=== PATIENT | male | born 1955 | race African-American/Black ===

== ENCOUNTER 2021-11-12 00:15 | Inpatient (IN) | payer MEDICARE ==
[~2021-11-12] VITALS: Ht 172.7 cm; Wt 75.7 kg
[2021-11-12] VITALS (9 sets, daily range): BP systolic 97–132; BP diastolic 60–77
[2021-11-12 00:44] LABS: BASOPHILS # (AUTO) 0.1 (0.0-0.1); BASOPHILS % 0.6 % (0.0-1.0); EOSINOPHILS # (AUTO) 1.8 (0.0-0.4); EOSINOPHILS % 9.8 % (0.0-6.0); HEMATOCRIT 30.6 % (38.2-49.6); HEMOGLOBIN 9.3 g/dL (14.0-18.0); LYMPHOCYTES # (AUTO) 2.6 (1.0-3.2); LYMPHOCYTES % 14.2 % (18.0-39.1); MEAN CORPUSCULAR HEMOGLOBIN 25.7 pg (28-32); MEAN CORPUSCULAR HGB CONC 30.4 g/dL (31-35); MEAN CORPUSCULAR VOLUME 84.5 fL (81-99); MONOCYTES % 5.3 % (4.4-11.3); NEUTROPHILS # (AUTO) 12.8 (2.1-6.9); NEUTROPHILS % 69.4 % (38.7-80.0); PLATELET COUNT 511 x10e3/uL (140-360); RED BLOOD COUNT 3.62 x10e6/uL (4.3-5.7); RED CELL DISTRIBUTION WIDTH 19.1 % (11.7-14.4)
[2021-11-12 01:02] LABS: ALANINE AMINOTRANSFERASE 8 IU/L (0-55); ALBUMIN 2.6 g/dL (3.5-5.0); ALBUMIN/GLOBULIN RATIO 0.5 (0.8-2.0); ALKALINE PHOSPHATASE 58 IU/L (40-150); ANION GAP 15.7 mmol/L (8-16); BLOOD UREA NITROGEN 15 mg/dL (7-26); BUN/CREATININE RATIO 19 (6-25); CALCIUM 8.5 mg/dL (8.4-10.2); CARBON DIOXIDE 26 mmol/L (22-29); CHLORIDE 99 mmol/L (98-107); CREATINE KINASE 24 IU/L (30-200); CREATININE, SERUM 0.81 mg/dL (0.72-1.25); EST GLOMERULAR FILTRATION RATE 116 ML/MIN (60-); GLUCOSE 92 mg/dL (74-118); POTASSIUM 3.7 mmol/L (3.5-5.1); SODIUM 137 mmol/L (136-145)
[2021-11-12] MEDS ORDERED: PIPERACILLIN/TAZOBACTAM 3.375 GM VIAL ONE (01:05)
[2021-11-12 01:15] LABS: B-TYPE NATRIURETIC PEPTIDE2 352.8 pg/mL (0-100)
[2021-11-12 01:27] LABS: CLARITY,URINE CLEAR (CLEAR); COLOR,URINE YELLOW (YELLOW); KETONES,URINE NEGATIVE (NEGATIVE); LEUKOCYTE ESTERASE ,URINE NEGATIVE (NEGATIVE); NITRITE,URINE NEGATIVE (NEGATIVE); PROTEIN,URINE DIPSTICK NEGATIVE (NEGATIVE); URINE UROBILINOGEN 0.2 mg/dL (0.2 - 1)
[2021-11-12 01:34] LABS: BACTERIA,URINE RARE /HPF; EPITHELIAL CELLS,URINE FEW /LPF; RBC,URINE 0-5 /HPF (0-5); WBC,URINE (MAN) 0-5 /HPF (0-5)
[2021-11-12] MEDS ORDERED: FUROSEMIDE INJ 10 MG/ML 4 ML VIAL IV SCH (03:45)
[2021-11-12] MEDS ORDERED: ONDANSETRON HCL INJ 2MG/ML 2ML 2 MG/ML VIAL IV PRN ×2 (04:15→12:30)
[2021-11-12] MEDS ORDERED: TYLENOL325 MG PO (06:16)
[2021-11-12] MEDS ORDERED: ALBUTEROL0.63 MG/3 NEB (06:19)
[2021-11-12] MEDS ORDERED: ALLOPURINOL100 MG PO (06:21)
[2021-11-12] MEDS ORDERED: AMIODARONE HCL100 MG PO (06:21)
[2021-11-12] MEDS ORDERED: ASPIRIN CHEW81 MG PO (06:22)
[2021-11-12] MEDS ORDERED: ATIVAN1 MG PO (06:23)
[2021-11-12] MEDS ORDERED: BENZONATATE100 MG PO (06:24)
[2021-11-12] MEDS ORDERED: FINASTERIDE5 MG PO (06:26)
[2021-11-12] MEDS ORDERED: FOLIC ACID0.4 MG PO (06:27)
[2021-11-12] MEDS ORDERED: FUROSEMIDE40 MG PO (06:28)
[2021-11-12] MEDS ORDERED: NEURONTIN100 MG PO (06:29)
[2021-11-12] MEDS ORDERED: MUCINEX600 MG PO (06:30)
[2021-11-12] MEDS ORDERED: ARAVA20 MG PO (06:32)
[2021-11-12] MEDS ORDERED: METOPROLOL TART25 MG PO (06:32)
[2021-11-12] MEDS ORDERED: PROTONIX20 MG PO (06:51)
[2021-11-12] MEDS ORDERED: PREDNISONE20 MG PO (06:52)
[2021-11-12] MEDS ORDERED: FLOMAX0.4 MG PO (06:53)
[2021-11-12] MEDS ORDERED: ULTRAM50 MG PO (06:54)
[2021-11-12] MEDS ORDERED: LIPITOR20 MG PO (08:03)
[2021-11-12] MEDS: ACETAMINOPHEN 325 MG TAB PO PRN (08:42)
[2021-11-12 08:56] LABS: CREATINE KINASE 21 IU/L (30-200)
[2021-11-12 09:31] LABS: ABG HCO3 33 mmol/L (22-26); ABG PCO2 36 mmHg (35-45); ABG PH 7.57 (7.35-7.45); ABG PO2 65 mmHg (80-105); ABG TCO2 34
[2021-11-12] MEDS: ALLOPURINOL 100 MG TAB PO SCH (11:00)
[2021-11-12] MEDS ORDERED: ACETAMINOPHEN 325 MG TAB PO PRN (12:00)
[2021-11-12] MEDS ORDERED: HYDROMORPHONE 1MG/1ML INJ IV ONE (12:35)
[2021-11-12] MEDS ORDERED: SODIUM CHLORIDE 0.9% 250ML 250 ML ONE (12:42)
[2021-11-12] MEDS: AMIODARONE HCL 200 MG TAB PO SCH (12:47)
[2021-11-12] MEDS ORDERED: IOPAMIDOL 370 MG/ML 100 ML INFUS..BTL INJ ONE (13:33)
[2021-11-12] MEDS: METHYLPREDNISOLONE SOD SUCC 40 MG/ML VIAL 1ML IV SCH (14:42)
[2021-11-12 17:11] LABS: CREATINE KINASE 19 IU/L (30-200)
[2021-11-12] MEDS: METOPROLOL TARTRATE 25 MG TAB PO SCH ×2 (17:14→20:37)
[2021-11-12] MEDS: BENZONATATE 100 MG CAP PO SCH ×2 (17:14→20:36)
[2021-11-12] MEDS: GUAIFENESIN 600MG/DEXTROMETHORPHAN 30MG TABSR PO SCH (17:14)
[2021-11-12] MEDS: ATORVASTATIN 40 MG TAB PO SCH (20:36)
[2021-11-12] MEDS: HYDROCODONE/APAP 5MG-325MG TAB PO PRN (20:40)
[2021-11-12] MEDS ORDERED: ZOLPIDEM TARTRATE 5 MG TAB PO PRN (21:00)
[2021-11-13] VITALS (7 sets, daily range): BP systolic 99–121; BP diastolic 56–89
[2021-11-13] MEDS: METOPROLOL TARTRATE 25 MG TAB PO SCH ×3 (05:17→20:19)
[2021-11-13 06:12] LABS: BASOPHILS # (AUTO) 0.1 (0.0-0.1); BASOPHILS % 0.4 % (0.0-1.0); EOSINOPHILS % 0.1 % (0.0-6.0); HEMATOCRIT 30.9 % (38.2-49.6); HEMOGLOBIN 9.3 g/dL (14.0-18.0); LYMPHOCYTES # (AUTO) 1.8 (1.0-3.2); LYMPHOCYTES % 12.6 % (18.0-39.1); MEAN CORPUSCULAR HEMOGLOBIN 25.2 pg (28-32); MEAN CORPUSCULAR HGB CONC 30.1 g/dL (31-35); MEAN CORPUSCULAR VOLUME 83.7 fL (81-99); MONOCYTES # (AUTO) 0.4 (0.2-0.8); MONOCYTES % 2.9 % (4.4-11.3); NEUTROPHILS # (AUTO) 11.6 (2.1-6.9); NEUTROPHILS % 82.9 % (38.7-80.0); PLATELET COUNT 543 x10e3/uL (140-360); RED BLOOD COUNT 3.69 x10e6/uL (4.3-5.7); RED CELL DISTRIBUTION WIDTH 18.9 % (11.7-14.4)
[2021-11-13 06:49] LABS: ALBUMIN 2.6 g/dL (3.5-5.0); ALBUMIN/GLOBULIN RATIO 0.5 (0.8-2.0); ANION GAP 12.9 mmol/L (8-16); CALCIUM 8.7 mg/dL (8.4-10.2); CREATININE, SERUM 0.74 mg/dL (0.72-1.25); POTASSIUM 3.9 mmol/L (3.5-5.1)
[2021-11-13] MEDS: TAMSULOSIN HCL 0.4 MG CAP PO SCH ×2 (08:56→09:00)
[2021-11-13] MEDS: METHYLPREDNISOLONE SOD SUCC 40 MG/ML VIAL 1ML IV SCH (08:56)
[2021-11-13] MEDS: AMIODARONE HCL 200 MG TAB PO SCH (08:56)
[2021-11-13] MEDS: FINASTERIDE 5 MG TAB PO SCH ×2 (08:56→09:00)
[2021-11-13] MEDS: GUAIFENESIN 600MG/DEXTROMETHORPHAN 30MG TABSR PO SCH ×2 (08:56→16:43)
[2021-11-13] MEDS: ALLOPURINOL 100 MG TAB PO SCH (08:57)
[2021-11-13] MEDS: PANTOPRAZOLE SOD 40 MG TABEC PO SCH (08:57)
[2021-11-13] MEDS: BENZONATATE 100 MG CAP PO SCH ×3 (08:57→20:19)
[2021-11-13] MEDS: HYDROCODONE/APAP 5MG-325MG TAB PO PRN ×2 (12:55→17:16)
[2021-11-13] MEDS: CLOPIDOGREL BISULFATE 75 MG TAB PO SCH (14:08)
[2021-11-13] MEDS: FLUTICASONE PROPIONATE NASAL SPRAY NS SCH (16:23)
[2021-11-13] MEDS: ATORVASTATIN 40 MG TAB PO SCH (20:19)
[2021-11-14] VITALS (7 sets, daily range): BP systolic 94–129; BP diastolic 60–85
[2021-11-14] MEDS: METOPROLOL TARTRATE 25 MG TAB PO SCH ×3 (05:48→22:24)
[2021-11-14] MEDS: HYDROCODONE/APAP 5MG-325MG TAB PO PRN (07:30)
[2021-11-14 08:45] LABS: BASOPHILS # (AUTO) 0.1 (0.0-0.1); BASOPHILS % 0.3 % (0.0-1.0); EOSINOPHILS # (AUTO) 0.1 (0.0-0.4); EOSINOPHILS % 0.5 % (0.0-6.0); HEMATOCRIT 29.2 % (38.2-49.6); HEMOGLOBIN 8.7 g/dL (14.0-18.0); LYMPHOCYTES # (AUTO) 2.9 (1.0-3.2); LYMPHOCYTES % 17.5 % (18.0-39.1); MEAN CORPUSCULAR HEMOGLOBIN 25.4 pg (28-32); MEAN CORPUSCULAR HGB CONC 29.8 g/dL (31-35); MEAN CORPUSCULAR VOLUME 85.1 fL (81-99); MONOCYTES # (AUTO) 1.2 (0.2-0.8); MONOCYTES % 7.3 % (4.4-11.3); NEUTROPHILS # (AUTO) 12.1 (2.1-6.9); NEUTROPHILS % 73.8 % (38.7-80.0); PLATELET COUNT 532 x10e3/uL (140-360); RED BLOOD COUNT 3.43 x10e6/uL (4.3-5.7); RED CELL DISTRIBUTION WIDTH 19.1 % (11.7-14.4)
[2021-11-14] MEDS: AMIODARONE HCL 200 MG TAB PO SCH (09:08)
[2021-11-14] MEDS: CLOPIDOGREL BISULFATE 75 MG TAB PO SCH (09:08)
[2021-11-14] MEDS: GUAIFENESIN 600MG/DEXTROMETHORPHAN 30MG TABSR PO SCH ×2 (09:08→17:25)
[2021-11-14] MEDS: TAMSULOSIN HCL 0.4 MG CAP PO SCH (09:08)
[2021-11-14] MEDS: METHYLPREDNISOLONE SOD SUCC 40 MG/ML VIAL 1ML IV SCH (09:08)
[2021-11-14] MEDS: BENZONATATE 100 MG CAP PO SCH ×3 (09:08→22:23)
[2021-11-14] MEDS: PANTOPRAZOLE SOD 40 MG TABEC PO SCH (09:08)
[2021-11-14] MEDS: ALLOPURINOL 100 MG TAB PO SCH (09:08)
[2021-11-14] MEDS: FINASTERIDE 5 MG TAB PO SCH (09:08)
[2021-11-14] MEDS ORDERED: HYDROMORPHONE 1MG/1ML INJ IV ONE ×2 (09:30→18:45)
[2021-11-14] MEDS: FLUTICASONE PROPIONATE NASAL SPRAY NS SCH ×2 (09:35→17:25)
[2021-11-14] MEDS ORDERED: ONDANSETRON HCL 4 MG ORAL DISINTEGRATING TAB PO PRN (13:00)
[2021-11-14] MEDS: ATORVASTATIN 40 MG TAB PO SCH (22:23)
[2021-11-15] VITALS (9 sets, daily range): BP systolic 98–129; BP diastolic 62–85
[2021-11-15] MEDS: METOPROLOL TARTRATE 25 MG TAB PO SCH ×3 (06:00→20:47)
[2021-11-15] MEDS: HYDROCODONE/APAP 5MG-325MG TAB PO PRN ×2 (06:50→17:20)
[2021-11-15] MEDS: ALLOPURINOL 100 MG TAB PO SCH (08:59)
[2021-11-15] MEDS: PANTOPRAZOLE SOD 40 MG TABEC PO SCH (08:59)
[2021-11-15] MEDS: FINASTERIDE 5 MG TAB PO SCH (08:59)
[2021-11-15] MEDS: AMIODARONE HCL 200 MG TAB PO SCH (08:59)
[2021-11-15] MEDS: CLOPIDOGREL BISULFATE 75 MG TAB PO SCH (08:59)
[2021-11-15] MEDS: GUAIFENESIN 600MG/DEXTROMETHORPHAN 30MG TABSR PO SCH (08:59)
[2021-11-15] MEDS: METHYLPREDNISOLONE SOD SUCC 40 MG/ML VIAL 1ML IV SCH (08:59)
[2021-11-15] MEDS: TAMSULOSIN HCL 0.4 MG CAP PO SCH (08:59)
[2021-11-15] MEDS: BENZONATATE 100 MG CAP PO SCH ×3 (08:59→20:46)
[2021-11-15] MEDS: FLUTICASONE PROPIONATE NASAL SPRAY NS SCH ×2 (09:37→17:19)
[2021-11-15] MEDS: GUAIFENESIN/CODEINE 5 ML LIQD PO PRN ×2 (12:00→20:46)
[2021-11-15 15:28] LABS: BASOPHILS % 0.2 % (0.0-1.0); EOSINOPHILS % 0.1 % (0.0-6.0); HEMATOCRIT 30.3 % (38.2-49.6); HEMOGLOBIN 8.9 g/dL (14.0-18.0); LYMPHOCYTES # (AUTO) 0.8 (1.0-3.2); LYMPHOCYTES % 6.2 % (18.0-39.1); MEAN CORPUSCULAR HEMOGLOBIN 25.1 pg (28-32); MEAN CORPUSCULAR HGB CONC 29.4 g/dL (31-35); MEAN CORPUSCULAR VOLUME 85.6 fL (81-99); MONOCYTES # (AUTO) 0.6 (0.2-0.8); MONOCYTES % 4.3 % (4.4-11.3); NEUTROPHILS # (AUTO) 11.5 (2.1-6.9); NEUTROPHILS % 88.7 % (38.7-80.0); PLATELET COUNT 501 x10e3/uL (140-360); RED BLOOD COUNT 3.54 x10e6/uL (4.3-5.7); RED CELL DISTRIBUTION WIDTH 18.9 % (11.7-14.4)
[2021-11-15 15:42] LABS: ANION GAP 13.9 mmol/L (8-16); CALCIUM 8.3 mg/dL (8.4-10.2); CREATININE, SERUM 0.69 mg/dL (0.72-1.25); POTASSIUM 3.9 mmol/L (3.5-5.1)
[2021-11-15] MEDS: ATORVASTATIN 40 MG TAB PO SCH (20:46)
[2021-11-16] VITALS (10 sets, daily range): BP systolic 117–137; BP diastolic 64–88
[2021-11-16] MEDS: GUAIFENESIN/CODEINE 5 ML LIQD PO PRN ×3 (04:57→21:21)
[2021-11-16] MEDS: HYDROCODONE/APAP 5MG-325MG TAB PO PRN ×3 (04:57→21:21)
[2021-11-16] MEDS: METOPROLOL TARTRATE 25 MG TAB PO SCH ×3 (06:11→21:21)
[2021-11-16] MEDS: METHYLPREDNISOLONE SOD SUCC 40 MG/ML VIAL 1ML IV SCH (09:13)
[2021-11-16] MEDS: CLOPIDOGREL BISULFATE 75 MG TAB PO SCH (09:17)
[2021-11-16] MEDS: AMIODARONE HCL 200 MG TAB PO SCH (09:17)
[2021-11-16] MEDS: TAMSULOSIN HCL 0.4 MG CAP PO SCH (09:17)
[2021-11-16] MEDS: BENZONATATE 100 MG CAP PO SCH ×3 (09:18→21:21)
[2021-11-16] MEDS: ALLOPURINOL 100 MG TAB PO SCH (09:18)
[2021-11-16] MEDS: FINASTERIDE 5 MG TAB PO SCH (09:18)
[2021-11-16] MEDS: PANTOPRAZOLE SOD 40 MG TABEC PO SCH (09:18)
[2021-11-16] MEDS: FLUTICASONE PROPIONATE NASAL SPRAY NS SCH ×2 (09:19→16:43)
[2021-11-16] MEDS: ATORVASTATIN 40 MG TAB PO SCH (21:21)
[2021-11-17] VITALS (8 sets, daily range): BP systolic 103–161; BP diastolic 61–86
[2021-11-17] MEDS: METOPROLOL TARTRATE 25 MG TAB PO SCH ×3 (06:49→21:57)
[2021-11-17] MEDS: AMIODARONE HCL 200 MG TAB PO SCH (09:17)
[2021-11-17] MEDS: TAMSULOSIN HCL 0.4 MG CAP PO SCH (09:17)
[2021-11-17] MEDS: CLOPIDOGREL BISULFATE 75 MG TAB PO SCH (09:18)
[2021-11-17] MEDS: PANTOPRAZOLE SOD 40 MG TABEC PO SCH (09:18)
[2021-11-17] MEDS: FINASTERIDE 5 MG TAB PO SCH (09:18)
[2021-11-17] MEDS: ALLOPURINOL 100 MG TAB PO SCH (09:19)
[2021-11-17] MEDS: BENZONATATE 100 MG CAP PO SCH ×3 (09:19→20:02)
[2021-11-17] MEDS: FLUTICASONE PROPIONATE NASAL SPRAY NS SCH ×2 (09:24→16:38)
[2021-11-17] MEDS: METHYLPREDNISOLONE SOD SUCC 40 MG/ML VIAL 1ML IV SCH (09:24)
[2021-11-17] MEDS: GUAIFENESIN/CODEINE 5 ML LIQD PO PRN ×2 (09:26→17:55)
[2021-11-17] MEDS: HYDROCODONE/APAP 5MG-325MG TAB PO PRN (09:26)
[2021-11-17] MEDS ORDERED: SODIUM CHLORIDE 0.9% 250ML 250 ML ONE (12:09)
[2021-11-17] MEDS: ATORVASTATIN 40 MG TAB PO SCH (20:02)
[2021-11-17] MEDS: ALBUTEROL SULF 0.083% NEB SOLN 3 ML NEB NEB PRN (21:20)
[2021-11-18] VITALS (7 sets, daily range): BP systolic 99–150; BP diastolic 62–79
[2021-11-18] MEDS: ACETAMINOPHEN 325 MG TAB PO PRN (00:14)
[2021-11-18] MEDS: METOPROLOL TARTRATE 25 MG TAB PO SCH (06:13)
[2021-11-18 07:32] LABS: BASOPHILS # (AUTO) 0.1 (0.0-0.1); BASOPHILS % 0.5 % (0.0-1.0); EOSINOPHILS # (AUTO) 1.4 (0.0-0.4); EOSINOPHILS % 7.4 % (0.0-6.0); HEMATOCRIT 31.8 % (38.2-49.6); HEMOGLOBIN 9.3 g/dL (14.0-18.0); LYMPHOCYTES # (AUTO) 3.1 (1.0-3.2); LYMPHOCYTES % 16.1 % (18.0-39.1); MEAN CORPUSCULAR HEMOGLOBIN 25.3 pg (28-32); MEAN CORPUSCULAR HGB CONC 29.2 g/dL (31-35); MEAN CORPUSCULAR VOLUME 86.4 fL (81-99); MONOCYTES # (AUTO) 1.1 (0.2-0.8); MONOCYTES % 5.8 % (4.4-11.3); NEUTROPHILS # (AUTO) 13.2 (2.1-6.9); NEUTROPHILS % 69.2 % (38.7-80.0); PLATELET COUNT 455 x10e3/uL (140-360); RED BLOOD COUNT 3.68 x10e6/uL (4.3-5.7); RED CELL DISTRIBUTION WIDTH 19.9 % (11.7-14.4)
[2021-11-18 07:52] LABS: ANION GAP 11.9 mmol/L (8-16); CALCIUM 8.4 mg/dL (8.4-10.2); CREATININE, SERUM 0.84 mg/dL (0.72-1.25); POTASSIUM 3.9 mmol/L (3.5-5.1)
[2021-11-18] MEDS: GUAIFENESIN/CODEINE 5 ML LIQD PO PRN ×2 (08:39→21:41)
[2021-11-18] MEDS: HYDROCODONE/APAP 5MG-325MG TAB PO PRN ×2 (08:39→21:41)
[2021-11-18] MEDS: FLUTICASONE PROPIONATE NASAL SPRAY NS SCH ×2 (08:43→15:18)
[2021-11-18] MEDS: ALLOPURINOL 100 MG TAB PO SCH (08:43)
[2021-11-18] MEDS: BENZONATATE 100 MG CAP PO SCH ×3 (08:43→21:35)
[2021-11-18] MEDS: CLOPIDOGREL BISULFATE 75 MG TAB PO SCH (08:43)
[2021-11-18] MEDS: TAMSULOSIN HCL 0.4 MG CAP PO SCH (08:43)
[2021-11-18] MEDS: PANTOPRAZOLE SOD 40 MG TABEC PO SCH (08:43)
[2021-11-18] MEDS: AMIODARONE HCL 200 MG TAB PO SCH (08:43)
[2021-11-18] MEDS: FINASTERIDE 5 MG TAB PO SCH (08:43)
[2021-11-18] MEDS: METHYLPREDNISOLONE SOD SUCC 40 MG/ML VIAL 1ML IV SCH (08:43)
[2021-11-18 12:14] LABS: BAND NEUTROPHILS % (MANUAL) 1 %; EOSINOPHILS % (MANUAL) 7 % (0-7); LYMPHOCYTES % (MANUAL) 18 % (19-48); MONOCYTES % (MANUAL) 6 % (3.4-9.0); NEUTROPHILS % (MANUAL) 68 % (40-74); NUCLEATED RED BLOOD CELLS 1
[2021-11-18 12:15] LABS: ANISOCYTOSIS MODERATE; PLATELET ESTIMATE ADEQUATE; PLATELET MORPHOLOGY COMMENT NORMAL; RBC MORPHOLOGY COMMENT ABNORMAL
[2021-11-18] MEDS: ATORVASTATIN 40 MG TAB PO SCH (21:35)
[2021-11-18] MEDS: ALBUTEROL SULF 0.083% NEB SOLN 3 ML NEB NEB PRN (22:29)
[2021-11-19] VITALS: BP 122/66
[2021-11-19 04:00] VITALS: BP 115/60
[2021-11-19] MEDS: ALBUTEROL SULF 0.083% NEB SOLN 3 ML NEB NEB PRN (05:38)
[2021-11-19] MEDS ORDERED: Fluticasone Propionate NS (06:50)
[2021-11-19] MEDS ORDERED: CEPHALEXIN500 MG PO (06:50)
[2021-11-19] MEDS ORDERED: PLAVIX75 MG PO (06:50)
[2021-11-19] MEDS ORDERED: ZITHROMAX500 MG PO (06:50)
[2021-11-19] MEDS ORDERED: TOPROL XL25 MG PO (06:50)
[2021-11-19] MEDS ORDERED: COZAAR25 MG PO (06:50)
[2021-11-19] MEDS ORDERED: PREDNISONE20 MG PO (06:50)
[2021-11-19] MEDS ORDERED: FUROSEMIDE40 MG PO (06:50)
[2021-11-19 08:00] VITALS: BP 117/69
[2021-11-19 08:37] VITALS: BP 117/69
[2021-11-19 08:43] VITALS: BP 117/69
[2021-11-19] MEDS ORDERED: FUROSEMIDE 40 MG TAB PO SCH (09:00)
[2021-11-19] MEDS ORDERED: METOPROLOL SUCCINATE 25 MG TAB XL PO SCH (09:00)
[2021-11-19] MEDS ORDERED: LOSARTAN POTASSIUM 25 MG TAB PO SCH (09:00)
[2021-11-19] MEDS: METHYLPREDNISOLONE SOD SUCC 40 MG/ML VIAL 1ML IV SCH (09:01)
[2021-11-19] MEDS: AMIODARONE HCL 200 MG TAB PO SCH (09:02)
[2021-11-19] MEDS: ALLOPURINOL 100 MG TAB PO SCH (09:02)
[2021-11-19] MEDS: BENZONATATE 100 MG CAP PO SCH (09:02)
[2021-11-19] MEDS: FLUTICASONE PROPIONATE NASAL SPRAY NS SCH (09:02)
[2021-11-19] MEDS: CLOPIDOGREL BISULFATE 75 MG TAB PO SCH (09:02)
[2021-11-19] MEDS: TAMSULOSIN HCL 0.4 MG CAP PO SCH (09:02)
[2021-11-19] MEDS: FINASTERIDE 5 MG TAB PO SCH (09:02)
[2021-11-19] MEDS: PANTOPRAZOLE SOD 40 MG TABEC PO SCH (09:02)
[2021-11-19] MEDS: HYDROCODONE/APAP 5MG-325MG TAB PO PRN (09:20)
[2021-11-19] MEDS: GUAIFENESIN/CODEINE 5 ML LIQD PO PRN (09:25)
== END 2021-11-19 12:03 | DRG 193 ==
LOC: ER 00:17 → ERHOLD 01:58 → MED/SURG3 03:45
PROVIDERS: ADMIT Internal Medicine; ATTEND Internal Medicine
DX: J18.9 Pneumonia, unspecified organism (principal); J96.01 Acute respiratory failure with hypoxia; J96.21 Acute and chronic respiratory failure with hypoxia; I50.23 Acute on chronic systolic (congestive) heart failure; I11.0 Hypertensive heart disease with heart failure; J84.10 Pulmonary fibrosis, unspecified; M05.10 Rheumatoid lung disease with rheumatoid arthritis of unspecified site; J84.89 Other specified interstitial pulmonary diseases; I25.2 Old myocardial infarction; Z95.5 Presence of coronary angioplasty implant and graft; D50.0 Iron deficiency anemia secondary to blood loss (chronic); E87.6 Hypokalemia; I25.10 Atherosclerotic heart disease of native coronary artery without angina pectoris; R54 Age-related physical debility; N40.0 Benign prostatic hyperplasia without lower urinary tract symptoms; B18.2 Chronic viral hepatitis C; I48.0 Paroxysmal atrial fibrillation; Z79.899 Other long term (current) drug therapy
CPT/HCPCS: 36415; 36600; 71045; 71260; 80048; 80053; 81001; 82550; 82553; 82805; 83605; 83735; 83880; 84484; 85025; 87040; 93005; 93306; 94640; 94760; 94799; 97139; 99251; 99285; J0456; J0692; J1170; J1940; J2405; J2543; J2920; J7050; Q0162; Q9967; U0002